=== PATIENT | female | born 1940 | race African-American/Black ===

== ENCOUNTER → 2017-01-20 | Outpatient (CLI) | payer MEDICARE ==
[2013-09-13 10:00] VITALS: BP 132/78
[~2017-01-20] MED LIST: ASPI-630 PO; CALC-299 PO; CHOL10003 PO; CYAN500T17 PO; LETR2.5T18 PO; LOVA40TA2 PO; MULT-208 PO; OMEG1CAP6 PO; Oxycodone Hcl/Acetaminophen PO; TRIA1TAB3 PO
--- NOTE | 2017-01-20 12:25 | RAD ---
Thyroid ultrasound 01/20/2017 Clinical indication: Hyperthyroidism. Comparison: None. Findings: Right lobe of the thyroid measures 5.2 x 1.8 x 1.6 cm. There is diffuse heterogeneity throughout the right lobe. Largest discrete hypoechoic nodule in the inferior aspect with no internal blood flow measures 0.4 x 0.4 x 0.4 cm. Maximal AP thickness isthmus 0.5 cm. Left lobe of the thyroid measures 5.5 x 2.0 x 1.9 cm. There is diffuse prideful heterogeneity with no discrete left lobe thyroid nodule. Impression: 1. Diffuse thyroid heterogeneity which may be due to underlying thyroiditis. 2. Largest discrete thyroid nodule on the right measures up to 0.4 cm. Follow-up thyroid ultrasound in 12 months is recommended.
== END | disposition home or self-care (01) ==
LOC: US 10:59
PROVIDERS: ATTEND Family Medicine
DX: E05.90 Thyrotoxicosis, unspecified without thyrotoxic crisis or storm (principal)
CPT/HCPCS: 76536

== ENCOUNTER → 2017-11-10 | Outpatient (CLI) | payer MEDICARE ==
[2013-09-13 10:00] VITALS: BP 132/78
--- NOTE | 2017-11-10 17:04 | KCIC ---
Indication: Postmenopausal screening for osteoporosis. COMPARISON: None available. Bone Density: -BMD: (g/cm2) - AP Spine Total (L1-L4).......... 1.112. - Total left Hip................. 0.851. T-Score: - AP Spine Total (L1-L4)......... 0.6. - Total left Hip................. -0.7. Z-Score: - AP Spine Total (L1-L4).......... 2.4. - Total left Hip................. 0.2. World Health Organization criteria for BMD interpretation classify patients as Normal (T-score at or above -1.0), Osteopenic (T-score between -1.0 and -2.5), or Osteoporotic (T-score at or below -2.5). Impression: 1. AP Spine Total L1-L4--- normal. 2. Total left Hip--- normal. Electronically signed by: Jordy Poe MD (11/10/2017 5:00 PM) [place] [id number]
== END | disposition home or self-care (01) ==
LOC: KCIC DEXA 12:09
PROVIDERS: ATTEND Internal Medicine Hematology & Oncology
DX: Z13.820 Encounter for screening for osteoporosis (principal); Z78.0 Asymptomatic menopausal state; Z85.3 Personal history of malignant neoplasm of breast
CPT/HCPCS: 77080

== ENCOUNTER → 2019-02-01 | Outpatient (CLI) | payer MEDICARE ==
[2013-09-13 10:00] VITALS: BP 132/78
[~2019-02-01] MED LIST changes: +FEMARA2.5 MG PO; -LETR2.5T18 PO
--- NOTE | 2019-02-01 15:59 | RAD ---
MRI Brain without contrast History: Memory loss Technique: Multiplanar, multisequential noncontrast MR imaging was performed of the brain. Comparison: None Findings: There is some motion degradation. There is no evidence of recent infarct or cytotoxic edema. Ventricular size is within normal limits. Cerebral volume is considered within normal limits for patient's age. There is broad area of signal change in the left frontal parietal calvarium may be sequela of previous craniotomy assuming corresponding history. There is no significant midline shift, intraaxial mass effect, or focal abnormal extra-axial fluid collection. There is scattered overall mild T2 and FLAIR hyperintense signal abnormality of the supratentorial parenchyma bilaterally, somewhat more confluent signal change left periatrial/parietal white matter. There is no significant hemosiderin deposition of the brain parenchyma. There is preservation of the major intracranial flow-voids at the skull base. The mastoid air cells are aerated. The cerebellar tonsils are normal in location. There is no significant abnormality of the pineal gland or pituitary gland. There is patchy minimal ethmoid air cell mucosal thickening. There has been lens surgery bilaterally, somewhat disconjugate gaze. There is preserved marrow signal of the clivus. Impression: 1. There is no evidence of recent infarct or intracranial mass effect. 2. Scattered overall mild T2 and FLAIR signal of the supratentorial parenchyma bilaterally is nonspecific, more commonly due to chronic microvascular ischemic disease in a patient this age. There is mild supratentorial involutional change. While no provided history, signal change of left frontal parietal calvarium is likely sequela of previous craniotomy. Electronically signed by: Burak Roberson MD (02/01/2019 3:56 PM) [id number]
== END | disposition home or self-care (01) ==
LOC: MRI 14:37
PROVIDERS: ATTEND Family Medicine
DX: J34.89 Other specified disorders of nose and nasal sinuses (principal)
CPT/HCPCS: 70551

== ENCOUNTER 2019-08-02 16:57 | Emergency (ER) | payer MEDICARE ==
[~2019-08-02] VITALS: Ht 160 cm; Wt 80.3 kg
[2019-08-02 17:20] VITALS: BP 122/64
[2019-08-02] MEDS ORDERED: DIPH,PERTUSS(ACELL),TET VAC/PF 0.5 ML SYRINGE. VAX IM ONE (17:45)
[2019-08-02] MEDS ORDERED: NEOMY/BACITR/POLYMYXIN OINT PACKET. TP ONE (17:45)
[2019-08-02] MEDS ORDERED: AMOX1TAB61 PO (18:00)
--- NOTE | 2019-08-02 18:00 | PHYS DOC ---
General Adult EDM: Chief Complaint: ANIMAL BITE HPI: HPI: Patient is a 79 year old female who presents to the ED today complaining of a dog bite to the left vivar. Patient got bit by the neighbors dog. Patient reports cleaning the area with water and peroxide prior to coming to the ED. Patient does not know the vaccine status of the dog. Review of Systems: Review of Systems: Constitutional: Denies fever or chills. [] Musculoskeletal: Denies back pain or joint pain. [] Integument: Reports dog bite to the left vivar Neurologic: Denies headache, focal weakness or sensory changes. [] Psychiatric: Denies depression or anxiety. [] Heart Score: Risk Factors: Risk Factors: DM, Current or recent (<one month) smoker, HTN, HLP, family history of CAD, obesity. Risk Scores: Score 0 - 3: 2.5% MACE over next 6 weeks - Discharge Home Score 4 - 6: 20.3% MACE over next 6 weeks - Admit for Clinical Observation Score 7 - 10: 72.7% MACE over next 6 weeks - Early Invasive Strategies Current Medications: Current Medications Medications (Trade) Dose Ordered Sig/Janna Start Time Stop Time Status Last Admin Dose Admin Diphtheria/ Tetanus/Acell Pertussis (ADACEL TDap SYRINGE) 0.5 ml ONCE ONCE 08/02/19 17:45 08/02/19 17:46 DC Neomycin/ Polymyxin/ Bacitracin (Triple Antibiotic Ointment) 1 pkt 1X ONCE 08/02/19 17:45 08/02/19 17:46 DC Allergies: Allergies: Allergies Coded Allergies Type Severity Reaction Last Updated Verified No Known Drug Allergies 09/12/13 No Physical Exam: PE: Constitutional: Well developed, well nourished, no acute distress, non-toxic appearance. [] Skin: Left distal vivar with 2 dog bites one approx. 1 cm the other approx. 0.5 cm. No drainage. Neurovascular exam is intact to the left lower extremity. Back: No tenderness, no CVA tenderness. [] Extremities: No tenderness, no cyanosis, no clubbing, ROM intact, no edema. [] Neurologic: Alert and oriented X 3, normal motor function, normal sensory function, no focal deficits noted. [] Psychologic: Affect normal, judgement normal, mood normal. [] Current Patient Data: Vital Signs: Vital Signs Date Time Temp Pulse Resp B/P (MAP) Pulse Ox O2 Delivery O2 Flow Rate FiO2 08/02/19 17:20 98.4 71 18 96 98.4 EKG: EKG: [] Radiology/Procedures: Radiology/Procedures: [] Course & Med Decision Making: Course & Med Decision Making Pertinent Labs and Imaging studies reviewed. (See chart for details) This is a 79-year-old female patient presenting to the ED today with dog bite to the left vivar. Area was cleaned and Neosporin applied to the area as well as clean dry dressing by the RN. Tetanus updated, discharged on Augmentin. Wound care instructions and return precautions provided. Dragon Disclaimer: Dragon Disclaimer: This electronic medical record was generated, in whole or in part, using a voice recognition dictation system. Departure Departure Impression: Primary Impression: Dog bite of left lower leg Qualified Codes: S81.852A - Open bite, left lower leg, initial encounter; W54.0XXA - Bitten by dog, initial encounter Disposition: HOME, SELF-CARE Condition: STABLE Referrals: KEENAN TOLEDO MD (PCP) follow up with your doctor in 1 week Patient Instructions: Animal Bite, [id number] Additional Instructions: You have dog bite to the left lower extremity, you can shower and wash the area with regular soap and water, apply Neosporin to the area twice a day. Take the prescribed antibiotics until completed. Follow-up with your own doctor in 1 to 2 weeks. Come back to the ED at any point wound condition worsens. Scripts Amoxicillin/Potassium Clav (AUGMENTIN [id number] TABLET) 1 Each Tablet 1 TAB PO BID for 10 Days, #20 TAB 0 Refills Prov: JIM MOTA APRN 08/02/19 JIM MOTA APRN August 02, 2019 18:00
== END 2019-08-02 18:16 | disposition home or self-care (01) ==
LOC: ER 16:57
DX: S81.852A Open bite, left lower leg, initial encounter (principal); W54.0XXA Bitten by dog, initial encounter; Y93.89 Activity, other specified; Y92.89 Other specified places as the place of occurrence of the external cause; Y99.8 Other external cause status
CPT/HCPCS: 90471; 90715; 99283